=== PATIENT | male | born 1985 | race Caucasian/White ===

== ENCOUNTER 2018-11-13 18:26 | Emergency (ER) | payer SELFPAY ==
[2018-11-13 19:23] LABS: Bilirubin Negative (Negative); Blood, Urine Large (Negative); Clarity TURBID (Clear); Glucose, Urine (Dipstick) Negative (Negative); Leukocyte Large (Negative); Nitrite Positive (Negative); Protein, Urine (Dipstick) 100 mg/dL (Neg-Trace); Specific Gravity, Urine 1.014 (1.002-1.036)
[2018-11-13 19:26] LABS: Bacteria/HPF 4+ HPF (None Seen); Squamous Epithelial 0-3 HPF (0-3); Yeast-AUWi Flag 18.4 (0-25.0)
[2018-11-13 19:29] LABS: Pathc Cast-AUWi Flag 7.48 (0-2.49)
[2018-11-13 19:38] LABS: Hyaline Casts/LPF NONE SEEN LPF (0-3 Hyaline); Manual Microscopic Reviewed? No Path Casts Seen
[2018-11-13 20:03] LABS: #Lymphocytes 0.8 thou/uL (1.20-3.40); #Monocytes 0.9 thou/uL (0.11-0.59); %Basophils 0.1 % (0.0-1.0); %Eosinophils 0.1 % (0.0-10.0); %Lymphocytes 4.9 % (21.0-51.0); %Monocytes 5.1 % (0.0-10.0); %Neutrophils 89.7 % (42.0-75.0); Hemoglobin 15.5 g/dL (14.0-18.0); Mean Corpuscular HGB CONC 32.8 g/dL (32.0-36.0); Mean Corpuscular Hemoglobin 31.7 pg (27.0-31.0); Mean Corpuscular Volume 96.6 fL (78.0-98.0); Mean Platelet Volume 9.1 fL (7.4-10.4); Platelet Count 161 thou/uL (130-400); Red Blood Cell (RBC) Count 4.89 mill/uL (4.70-6.10); White Blood Cell (WBC) Count 16.7 thou/uL (4.8-10.8)
[2018-11-13 20:28] LABS: ALT (SGPT) 333 U/L (8-55); AST (SGOT) 172 U/L (5-34); Albumin 3.7 g/dL (3.5-5.0); Alkaline Phosphatase 252 U/L (40-150); Anion Gap 14 mmol/L (10-20); BUN (Urea Nitrogen) 12 mg/dL (8.9-20.6); Bilirubin, Total 0.9 mg/dL (0.2-1.2); Calc. Creatinine Clearance 0 mL/min (70-130); Calcium 9.5 mg/dL (7.8-10.44); Carbon Dioxide 29 mmol/L (22-29); Chloride 94 mmol/L (98-107); Estimated GFR-MDRD 81; Globulin 3.6 g/dL (2.4-3.5); Glucose 157 mg/dL (70-105); Potassium 4.2 mmol/L (3.5-5.1); Protein, Total 7.3 g/dL (6.0-8.3); Sodium 133 mmol/L (136-145)
--- NOTE | 2018-11-13 20:42 | CT ---
CT ABDOMEN AND PELVIS NONCONTRAST: History: Flank pain. Dysuria. FINDINGS: Each renal collecting system, ureter and urinary bladder are decompressed. There is subtle stranding within the retroperitoneal fat around each kidney. Lack of contrast limits evaluation for other abnormalities. Hyperdense material is present within the colon. IMPRESSION: 1. No CT evidence of urinary tract obstruction or calcification. 2. Subtle stranding within the retroperitoneal fat around each kidney reflects inflammation. Clinical correlation regarding other signs of symptoms of bilateral upper urinary tract infection is required . POS: [facility]
[2018-11-13] MEDS ORDERED: cefTRIAXone\\ROCEPHIN 1 GM VIAL ONE (20:45)
[2018-11-13] MEDS ORDERED: Morphine 4 MG/ML VIAL ONE (21:37)
[2018-11-13] MEDS ORDERED: Acetaminophen 500 MG TAB ONE (21:38)
== END 2018-11-13 22:37 | disposition home or self-care (01) ==
LOC: ERS 18:26
DX: N12 Tubulo-interstitial nephritis, not specified as acute or chronic (principal); R74.8 Abnormal levels of other serum enzymes; F41.9 Anxiety disorder, unspecified; F17.210 Nicotine dependence, cigarettes, uncomplicated
CPT/HCPCS: 36415; 74176; 80053; 81003; 81015; 85025; 96365; 96375; J0696; J2270

== ENCOUNTER 2019-04-25 06:51 | Inpatient (IN) | payer OTHER, SELFPAY ==
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
[2019-04-25 07:46] LABS: #Basophils 0.1 thou/uL (0.0-0.2); #Eosinphils 0.1 thou/uL (0.0-0.7); #Lymphocytes 2.3 thou/uL (1.20-3.40); #Monocytes 0.8 thou/uL (0.11-0.59); #Neutrophils 13.9 thou/uL (1.40-6.50); %Basophils 0.3 % (0.0-1.0); %Eosinophils 0.7 % (0.0-10.0); %Lymphocytes 13.4 % (21.0-51.0); %Monocytes 4.4 % (0.0-10.0); %Neutrophils 81.3 % (42.0-75.0); Hemoglobin 15.3 g/dL (14.0-18.0); Mean Corpuscular Hemoglobin 32.3 pg (27.0-31.0); Mean Corpuscular Volume 94.9 fL (78.0-98.0); Mean Platelet Volume 8.8 fL (7.4-10.4); Platelet Count 190 thou/uL (130-400); Red Blood Cell (RBC) Count 4.73 mill/uL (4.70-6.10); White Blood Cell (WBC) Count 17.1 thou/uL (4.8-10.8)
[2019-04-25] MEDS ORDERED: Ondansetron PF 4 MG/2 ML Vial ONE ×3 (07:53→11:06)
[2019-04-25] MEDS ORDERED: Lorazepam 2 MG/ML VIAL ONE (07:53)
--- NOTE | 2019-04-25 07:58 | CT ---
CT CERVICAL SPINE WITHOUT IV CONTRAST: FINDINGS: Very minute disk osteophytosis. No evidence for acute fracture or dislocation. IMPRESSION: No acute cervical spine fracture or dislocation. Findings were discussed with Dr. Patel in the emergency room at 7:44 a.m. ALYSSIA ADORNO POS: [facility]
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
[2019-04-25 08:10] LABS: Acetaminophen Less than 6.0 mcg/mL (10.0-30.0); Alcohol Less than 10 mg/dL (Less than 10); Salicylate Less than 8.0 mg/dL (15.0-30.0)
[2019-04-25 08:11] LABS: ALT (SGPT) 52 U/L (8-55); AST (SGOT) 78 U/L (5-34); Albumin 4.1 g/dL (3.5-5.0); Alkaline Phosphatase 67 U/L (40-150); Anion Gap 10 mmol/L (10-20); BUN (Urea Nitrogen) 21 mg/dL (8.9-20.6); Calc. Creatinine Clearance 0 mL/min (70-130); Calcium 8.9 mg/dL (7.8-10.44); Carbon Dioxide 29 mmol/L (22-29); Chloride 100 mmol/L (98-107); Estimated GFR-MDRD 81; Globulin 1.9 g/dL (2.4-3.5); Glucose 127 mg/dL (70-105); Lipase 13 U/L (8-78); Potassium 3.3 mmol/L (3.5-5.1); Sodium 136 mmol/L (136-145)
[2019-04-25] MEDS ORDERED: Morphine 4 MG/ML VIAL ONE (08:15)
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
[2019-04-25] MEDS ORDERED: Bupivacaine HCl 0.5%/Epinephrine 1:200,000/PF 30 ml Vial ONE ×2 (09:43→16:53)
[2019-04-25] MEDS ORDERED: Thrombin 5000 UNITS/5 ML VIAL ONE (09:43)
[2019-04-25] MEDS ORDERED: Fentanyl 250 MCG/5 ML VIAL ONE (09:56)
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
[2019-04-25] MEDS ORDERED: Glycopyrrolate 0.2 MG/ML 5 ML SYRINGE ONE (11:06)
[2019-04-25] MEDS ORDERED: Succinylcholine Chloride 20 MG/ML 10 ml SYRINGE FS ONE (11:06)
[2019-04-25] MEDS ORDERED: Ketorolac Tromethamine 30 MG/ML VIAL ONE (11:06)
[2019-04-25] MEDS ORDERED: Dexamethasone 20 MG/5 ML VIAL ONE (11:06)
[2019-04-25] MEDS ORDERED: Rocuronium Bromide 10 MG/ML (10ML VIAL) ONE (11:06)
[2019-04-25] MEDS ORDERED: PROPOFOL 200 MG/20 ML VIAL ONE (11:06)
[2019-04-25] MEDS ORDERED: PHENYLEPHRINE-NS 100 MCG/ML 10 ML SYRINGE ONE (11:06)
[2019-04-25] MEDS ORDERED: CEFAZOLIN 1 GM VIAL ONE (15:08)
[2019-04-25] MEDS ORDERED: Fentanyl 100 MCG/2 ML VIAL ONE (16:27)
[2019-04-25] MEDS ORDERED: ISOVUE-370 76%-LOCM 1 ML ONE (16:37)
[2019-04-25] MEDS ORDERED: PACU-Morphine 4MG/ML VIAL SLOW IVP PRN (17:30)
[2019-04-25] MEDS ORDERED: Promethazine HCl 25 MG/ML VIAL SLOW IVP PRN (17:30)
[2019-04-25] MEDS ORDERED: Promethazine HCl 25 MG/ML VIAL IM PRN (17:30)
[2019-04-25] MEDS ORDERED: HYDROmorphone 2 MG/ML VIAL SLOW IVP PRN (17:30)
[2019-04-25] MEDS ORDERED: Ondansetron HCl/PF 4 MG/2 ML Vial IVP PRN (17:30)
[2019-04-25] MEDS ORDERED: Ondansetron ODT 4 MG TAB PO PRN (17:50)
[2019-04-25] MEDS ORDERED: Ondansetron PF 4 MG/2 ML Vial IVP PRN (17:50)
[2019-04-25] MEDS ORDERED: Morphine 4 MG/ML VIAL SLOW IVP PRN (17:50)
[2019-04-25] MEDS ORDERED: Dextrose 50% Abboject 50 ML SYRINGE SLOW IVP PRN (17:50)
[2019-04-25] MEDS ORDERED: Dextrose 5% in Water 1,000 ML IV PRN (17:50)
[2019-04-25 21:08] LABS: #Lymphocytes 0.5 thou/uL (1.20-3.40); #Monocytes 0.3 thou/uL (0.11-0.59); #Neutrophils 9.6 thou/uL (1.40-6.50); %Basophils 0.1 % (0.0-1.0); %Eosinophils 0.3 % (0.0-10.0); %Lymphocytes 4.5 % (21.0-51.0); %Monocytes 3.2 % (0.0-10.0); Hemoglobin 12.5 g/dL (14.0-18.0); Mean Corpuscular HGB CONC 32.6 g/dL (32.0-36.0); Mean Corpuscular Hemoglobin 31.7 pg (27.0-31.0); Mean Platelet Volume 8.8 fL (7.4-10.4); Platelet Count 155 thou/uL (130-400); RBC Distribution Width 11.2 % (11.5-14.5); Red Blood Cell (RBC) Count 3.96 mill/uL (4.70-6.10); White Blood Cell (WBC) Count 10.4 thou/uL (4.8-10.8)
[2019-04-25] MEDS: Sodium Chloride 0.9% 1,000 ML IV SCH (21:12)
[2019-04-25] MEDS: Acetaminophen 1,000 MG in Premix Bag 1 BAG IVPB SCH (21:13)
[2019-04-25] MEDS: Famotidine 20 MG TAB PO SCH (21:14)
[2019-04-25] MEDS: Morphine 2 MG/ML SYRINGE SLOW IVP PRN (21:14)
[2019-04-25] MEDS: Senokot S 8.6-50 MG TAB PO SCH (21:14)
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
[2019-04-25] MEDS ORDERED: traMADol HCl 50 MG TAB PO PRN (21:19)
[2019-04-25 21:29] LABS: Anion Gap 9 mmol/L (10-20); BUN (Urea Nitrogen) 15 mg/dL (8.9-20.6); Calc. Creatinine Clearance 0 mL/min (70-130); Calcium 8.1 mg/dL (7.8-10.44); Carbon Dioxide 26 mmol/L (22-29); Chloride 107 mmol/L (98-107); Estimated GFR-MDRD Greater than 90; Glucose 112 mg/dL (70-105); Magnesium 1.8 mg/dL (1.6-2.6); Phosphorus 2.8 mg/dL (2.3-4.7); Potassium 4.1 mmol/L (3.5-5.1); Sodium 138 mmol/L (136-145)
[2019-04-25] MEDS ORDERED: Pantoprazole 40 MG VIAL IVP SCH (21:30)
[2019-04-25] MEDS: traMADol HCl 50 MG TAB PO SCH (22:40)
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
[2019-04-25 22:58] VITALS: BMI 20.4
[2019-04-25] MEDS ORDERED: CEFAZOLIN 1 GM VIAL SLOW IVP SCH (23:00)
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
[2019-04-26] MEDS: Acetaminophen 1,000 MG in Premix Bag 1 BAG IVPB SCH ×2 (02:42→09:26)
[2019-04-26] MEDS: traMADol HCl 50 MG TAB PO SCH ×4 (04:28→20:19)
[2019-04-26] MEDS: Sodium Chloride 0.9% 1,000 ML IV SCH ×4 (04:28→23:36)
[2019-04-26] MEDS: Morphine 2 MG/ML SYRINGE SLOW IVP PRN (05:04)
[2019-04-26] MEDS: CEFAZOLIN 2 GM in Premix Bag 1 BAG IVPB SCH ×3 (06:21→23:35)
[2019-04-26 07:39] LABS: #Lymphocytes 1.2 thou/uL (1.20-3.40); #Monocytes 0.8 thou/uL (0.11-0.59); #Neutrophils 7.8 thou/uL (1.40-6.50); %Basophils 0.2 % (0.0-1.0); %Eosinophils 0.3 % (0.0-10.0); %Lymphocytes 12.6 % (21.0-51.0); %Monocytes 7.8 % (0.0-10.0); %Neutrophils 79.1 % (42.0-75.0); Hemoglobin 10.8 g/dL (14.0-18.0); Mean Corpuscular HGB CONC 33.6 g/dL (32.0-36.0); Mean Corpuscular Hemoglobin 32.3 pg (27.0-31.0); Mean Corpuscular Volume 96.1 fL (78.0-98.0); Platelet Count 137 thou/uL (130-400); RBC Distribution Width 10.9 % (11.5-14.5); Red Blood Cell (RBC) Count 3.34 mill/uL (4.70-6.10); White Blood Cell (WBC) Count 9.9 thou/uL (4.8-10.8)
[2019-04-26 08:00] LABS: Anion Gap 9 mmol/L (10-20); BUN (Urea Nitrogen) 11 mg/dL (8.9-20.6); Calc. Creatinine Clearance 165 mL/min (70-130); Calcium 7.7 mg/dL (7.8-10.44); Carbon Dioxide 24 mmol/L (22-29); Chloride 103 mmol/L (98-107); Estimated GFR-MDRD Greater than 90; Glucose 121 mg/dL (70-105); Potassium 4.1 mmol/L (3.5-5.1); Sodium 132 mmol/L (136-145)
[2019-04-26] MEDS ORDERED: traMADol HCl 50 MG TAB PO PRN (08:15)
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
[2019-04-26] MEDS: Cyclobenzaprine 10 MG TAB PO SCH ×2 (09:29→20:20)
[2019-04-26] MEDS: Famotidine 20 MG TAB PO SCH ×2 (09:29→20:18)
[2019-04-26] MEDS: Gabapentin 300 MG CAP PO SCH ×3 (09:29→20:20)
[2019-04-26] MEDS: Senokot S 8.6-50 MG TAB PO SCH ×2 (09:29→20:20)
[2019-04-26] MEDS: Polyethylene Glycol 3350 17 GM Packet PO SCH (09:30)
[2019-04-26] MEDS: Acetaminophen 500 MG TAB PO SCH ×3 (11:37→23:35)
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
[2019-04-26] MEDS ORDERED: Acetaminophen 500 MG TAB PO SCH (21:30)
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
[2019-04-27] MEDS: traMADol HCl 50 MG TAB PO SCH ×4 (04:22→23:05)
[2019-04-27] MEDS: Acetaminophen 500 MG TAB PO SCH ×4 (05:42→23:05)
[2019-04-27] MEDS: CEFAZOLIN 2 GM in Premix Bag 1 BAG IVPB SCH ×3 (05:43→23:03)
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
[2019-04-27] MEDS: Famotidine 20 MG TAB PO SCH ×2 (09:35→21:03)
[2019-04-27] MEDS: Cyclobenzaprine 10 MG TAB PO SCH ×3 (09:35→21:02)
[2019-04-27] MEDS: Enoxaparin Sodium 40 MG/0.4 ML SYRINGE SC SCH (09:35)
[2019-04-27] MEDS: Senokot S 8.6-50 MG TAB PO SCH ×2 (09:36→21:03)
[2019-04-27] MEDS: Polyethylene Glycol 3350 17 GM Packet PO SCH (09:36)
[2019-04-27] MEDS: Gabapentin 300 MG CAP PO SCH ×3 (09:36→21:03)
[2019-04-27] MEDS: Sodium Chloride 0.9% 1,000 ML IV SCH (14:57)
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
[2019-04-28] MEDS: traMADol HCl 50 MG TAB PO PRN ×3 (03:06→17:34)
[2019-04-28] MEDS: Acetaminophen 500 MG TAB PO SCH ×3 (05:53→17:32)
[2019-04-28] MEDS: traMADol HCl 50 MG TAB PO SCH ×3 (05:53→17:33)
--- NOTE | 2019-04-28 07:57 | PRG ---
DATE OF SERVICE: 04/28/2019 I saw Mr. Pryor in his hospital room this morning. He has been moved out of the [facility] to general floor care. The brace is off as he is resting comfortably in bed. Both drains have been removed. I do not find any new deficits on his neurological examination. He can wiggle his toes and he has sensation in his legs. His bladder is working. We will continue to follow Mr. Pryor while he is in the hospital. When his head of bed is about 45 degrees, the brace should be on. Job ID: [id number]
[2019-04-28] MEDS: Sodium Chloride 0.9% 1,000 ML IV SCH (10:07)
[2019-04-28] MEDS: Cyclobenzaprine 10 MG TAB PO SCH ×3 (10:08→22:23)
[2019-04-28] MEDS: Gabapentin 300 MG CAP PO SCH ×3 (10:08→22:23)
[2019-04-28] MEDS: Famotidine 20 MG TAB PO SCH ×2 (10:08→22:23)
[2019-04-28] MEDS: Enoxaparin Sodium 40 MG/0.4 ML SYRINGE SC SCH (10:08)
[2019-04-28] MEDS: Senokot S 8.6-50 MG TAB PO SCH ×2 (10:08→22:23)
[2019-04-28] MEDS: Polyethylene Glycol 3350 17 GM Packet PO SCH (10:10)
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
[2019-04-29] MEDS: traMADol HCl 50 MG TAB PO SCH ×4 (00:18→17:49)
[2019-04-29] MEDS: traMADol HCl 50 MG TAB PO PRN ×4 (00:18→17:49)
[2019-04-29] MEDS: Acetaminophen 500 MG TAB PO SCH ×4 (00:18→17:50)
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
--- NOTE | 2019-04-29 09:11 | PRG ---
DATE OF SERVICE: 04/29/2019 I saw Mr. Pryor on rounds this morning. He is resting comfortably being in bed. He has not been told by Trauma Surgery or Orthopedics, to his recollection, whether he can be weightbearing on his lower extremities. He is able to sit up yesterday in his brace, which he described as not very comfortable, but tolerable. Overnight, the vitals have been stable, and his neurological examination is likewise unchanged. Mr. Pryor's disposition will be inpatient rehabilitation or home depending on his level of ambulation and independence. Job ID: [id number]
[2019-04-29] MEDS: Cyclobenzaprine 10 MG TAB PO SCH ×3 (09:34→20:43)
[2019-04-29] MEDS: Famotidine 20 MG TAB PO SCH ×2 (09:34→20:43)
[2019-04-29] MEDS: Gabapentin 300 MG CAP PO SCH ×2 (09:34→20:43)
[2019-04-29] MEDS: Polyethylene Glycol 3350 17 GM Packet PO SCH (09:35)
[2019-04-29] MEDS: Senokot S 8.6-50 MG TAB PO SCH ×2 (09:35→20:43)
[2019-04-29] MEDS: Enoxaparin Sodium 40 MG/0.4 ML SYRINGE SC SCH (09:35)
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
[2019-04-29] MEDS ORDERED: Acetaminophen/Codeine 30-300mg Tablet PO PRN (22:31)
[2019-04-29] MEDS: Acetaminophen/Codeine 30-300mg Tablet PO PRN (22:51)
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
[2019-04-30] MEDS: Acetaminophen 325 MG TAB PO SCH ×3 (05:37→21:17)
[2019-04-30] MEDS: Acetaminophen/Codeine 30-300mg Tablet PO PRN ×3 (05:38→21:14)
[2019-04-30] MEDS: Enoxaparin Sodium 40 MG/0.4 ML SYRINGE SC SCH (08:46)
[2019-04-30] MEDS: Cyclobenzaprine 10 MG TAB PO SCH (08:46)
[2019-04-30] MEDS: Famotidine 20 MG TAB PO SCH ×2 (08:47→21:17)
[2019-04-30] MEDS: Gabapentin 300 MG CAP PO SCH ×2 (08:47→21:17)
[2019-04-30] MEDS: Polyethylene Glycol 3350 17 GM Packet PO SCH (08:47)
[2019-04-30] MEDS: Senokot S 8.6-50 MG TAB PO SCH ×2 (08:47→21:17)
[2019-04-30] MEDS ORDERED: Morphine 2 MG/ML SYRINGE SLOW IVP SCH (12:00)
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
[2019-04-30] MEDS: Cyclobenzaprine 10 MG TAB PO PRN ×2 (14:39→22:58)
[2019-04-30] MEDS ORDERED: Morphine 2 MG/ML SYRINGE SLOW IVP PRN (15:40)
[2019-05-01] MEDS: Acetaminophen/Codeine 30-300mg Tablet PO PRN (02:14)
[2019-05-01] MEDS: Acetaminophen 325 MG TAB PO SCH (07:28)
[2019-05-01] MEDS ORDERED: Bisacodyl 10 MG SUPP PR SCH (07:45)
[2019-05-01] MEDS ORDERED: Gabapentin 300 MG CAP PO SCH ×2 (09:00)
[2019-05-01] MEDS ORDERED: Ibuprofen 800 MG TAB PO SCH (09:00)
[2019-05-01] MEDS: Senokot S 8.6-50 MG TAB PO SCH (09:15)
[2019-05-01] MEDS: Famotidine 20 MG TAB PO SCH (09:15)
[2019-05-01] MEDS: Enoxaparin Sodium 40 MG/0.4 ML SYRINGE SC SCH (09:16)
[2019-05-01] MEDS: Polyethylene Glycol 3350 17 GM Packet PO SCH (09:16)
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
[2019-05-01] MEDS ORDERED: Acetaminophen 500 MG TAB PO SCH (12:00)
[2019-05-01] MEDS ORDERED: traMADol HCl 50 MG TAB PO SCH (12:00)
[2019-05-01 15:52] VITALS: BP 117/72; TEMP 97.6
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
== END 2019-05-01 17:55 | disposition home or self-care (01) | DRG 460 ==
LOC: ERS 06:51 → ERHOLD 07:47 → IMCU/EMU 19:47 → SJJU 04-27 18:39
PROVIDERS: ADMIT Surgery; ATTEND Surgery
PROC: 0RG6071 Fusion of Thoracic Vertebral Joint with Autologous Tissue Substitute, Posterior Approach, Posterior Column, Open Approach (ICD-10-PCS; principal; 2019-04-25)
PROC: 0RGA071 Fusion of Thoracolumbar Vertebral Joint with Autologous Tissue Substitute, Posterior Approach, Posterior Column, Open Approach (ICD-10-PCS; 2019-04-25)
PROC: 0SG0071 Fusion of Lumbar Vertebral Joint with Autologous Tissue Substitute, Posterior Approach, Posterior Column, Open Approach (ICD-10-PCS; 2019-04-25)
PROC: 01NB0ZZ Release Lumbar Nerve, Open Approach (ICD-10-PCS; 2019-04-25)
PROC: 0QSP04Z Reposition Left Metatarsal with Internal Fixation Device, Open Approach (ICD-10-PCS; 2019-04-25)
PROC: 0QSG04Z Reposition Right Tibia with Internal Fixation Device, Open Approach (ICD-10-PCS; 2019-04-25)
DX: S32.012A Unstable burst fracture of first lumbar vertebra, initial encounter for closed fracture (principal); S82.51XA Displaced fracture of medial malleolus of right tibia, initial encounter for closed fracture; S92.312A Displaced fracture of first metatarsal bone, left foot, initial encounter for closed fracture; S92.342A Displaced fracture of fourth metatarsal bone, left foot, initial encounter for closed fracture; S92.352A Displaced fracture of fifth metatarsal bone, left foot, initial encounter for closed fracture; S93.325A Dislocation of tarsometatarsal joint of left foot, initial encounter; G89.11 Acute pain due to trauma; F41.9 Anxiety disorder, unspecified; F17.210 Nicotine dependence, cigarettes, uncomplicated; V89.0XXA Person injured in unspecified motor-vehicle accident, nontraffic, initial encounter; R40.2412 Glasgow coma scale score 13-15, at arrival to emergency department; S06.0X0A Concussion without loss of consciousness, initial encounter
CPT/HCPCS: 36415; 70450; 71260; 72126; 74177; 76000; 80048; 80053; 80307; 83690; 83735; 84100; 85025; 96361; 96374; 96375; C1713; C1768; C1769; C9113; G0390; J0131; J0670; J0690; J1100; J1650; J1885; J2060; J2270; J2405; J2704; J3010; L0639; Q9966

== ENCOUNTER 2019-08-24 13:24 | Emergency (ER) | payer OTHER, SELFPAY ==
--- NOTE | 2019-08-24 15:02 | CT ---
CT Lumbar Spine WO Con History: Pain after surgery Comparison: CT examination April 2019 Findings: Lung bases are clear. Aortic contour is normal. No retroperitoneal periaortic adenopathy. Posterior spinal fusion hardware with interconnecting rods from T11-L3 traversing the L1 burst fractu re. Laminectomy changes at L1 decompressing the thecal sac. Partial resorption of the inferior endplate of the complete burst fracture. A portion of the left superior endplate of L1 narrows the le ft neural foramina. Retropulsion causes mild right-sided neural foraminal narrowing. No perihardware lucency. No hardware complication. New from the comparison examination is a transversely oriented fracture through S2 anterior cortex ex tending from the right the left SI joint traversing both neural foramina. Impression: 1. Satisfactory postoperative appearance thoracolumbar spine traversing the complete burst fracture o f L1. No hardware complication. 2. New from the comparison examination transversely oriented fracture through anterior cortex of S2 e xtending to both SI joints traversing both S2 neural foramina. Fracture does extend to the right ilium and is incompletely imaged. Code: CR
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
[2019-08-24 15:56] LABS: #Basophils 0.1 thou/uL (0.0-0.2); #Eosinphils 0.1 thou/uL (0.0-0.7); #Lymphocytes 2.5 thou/uL (1.20-3.40); #Monocytes 0.9 thou/uL (0.11-0.59); #Neutrophils 5.2 thou/uL (1.40-6.50); %Basophils 0.7 % (0.0-1.0); %Eosinophils 1.5 % (0.0-10.0); %Lymphocytes 28.6 % (21.0-51.0); %Monocytes 10.1 % (0.0-10.0); %Neutrophils 59.1 % (42.0-75.0); Hemoglobin 14.7 g/dL (14.0-18.0); Mean Corpuscular HGB CONC 33.9 g/dL (32.0-36.0); Mean Corpuscular Hemoglobin 30.4 pg (27.0-31.0); Mean Corpuscular Volume 89.6 fL (78.0-98.0); Mean Platelet Volume 8.8 fL (7.4-10.4); Platelet Count 194 thou/uL (130-400); RBC Distribution Width 13.7 % (11.5-14.5); Red Blood Cell (RBC) Count 4.82 mill/uL (4.70-6.10); White Blood Cell (WBC) Count 8.8 thou/uL (4.8-10.8)
[2019-08-24 16:15] LABS: ALT (SGPT) 9 U/L (8-55); AST (SGOT) 13 U/L (5-34); Albumin 4.7 g/dL (3.5-5.0); Alkaline Phosphatase 86 U/L (40-110); Anion Gap 13 mmol/L (10-20); BUN (Urea Nitrogen) 16 mg/dL (8.9-20.6); Bilirubin, Total 3.8 mg/dL (0.2-1.2); Calc. Creatinine Clearance 0 mL/min (70-130); Calcium 9.6 mg/dL (7.8-10.44); Carbon Dioxide 25 mmol/L (22-29); Chloride 105 mmol/L (98-107); Estimated GFR-MDRD Greater than 90; Globulin 2.6 g/dL (2.4-3.5); Glucose 93 mg/dL (70-105); Potassium 3.4 mmol/L (3.5-5.1); Protein, Total 7.3 g/dL (6.0-8.3); Sodium 140 mmol/L (136-145)
[2019-08-24] MEDS ORDERED: Ketorolac Tromethamine 60 MG/2 ML VIAL ONE (17:27)
== END 2019-08-24 17:47 | disposition home or self-care (01) ==
LOC: ERS 13:24
DX: M54.5 Low back pain (principal); F41.9 Anxiety disorder, unspecified; F17.210 Nicotine dependence, cigarettes, uncomplicated
CPT/HCPCS: 36415; 72131; 72192; 80053; 85025; 96372; J1885

== ENCOUNTER 2021-08-05 | Emergency (ER) | payer SELFPAY ==
[2021-08-05] MEDS ORDERED: Ketorolac Tromethamine 30 MG/ML VIAL ONE (00:57)
== END 2021-08-05 03:02 | disposition home or self-care (01) ==
LOC: ERS
DX: M62.830 Muscle spasm of back (principal); F17.290 Nicotine dependence, other tobacco product, uncomplicated
CPT/HCPCS: 96372; 99283; J1885

== ENCOUNTER 2021-08-17 22:19 | Emergency (ER) | payer SELFPAY ==
[2021-08-18 00:12] LABS: Bilirubin Negative (Negative); Blood, Urine Negative (Negative); Clarity Clear (Clear); Glucose, Urine (Dipstick) Normal (Negative); Ketone, Urine Negative (Negative); Leukocyte Negative Leu/uL (Negative); Nitrite Negative (Negative); Protein, Urine (Dipstick) Negative (Neg-Trace); Specific Gravity, Urine 1.028 (1.002-1.036); Urobilinogen Normal mg/dL (Less than 2); pH, Urine 6.5 (5.0-9.0)
== END 2021-08-18 00:37 | disposition home or self-care (01) ==
LOC: ERS 22:19
DX: M54.50 Low back pain, unspecified (principal); G89.29 Other chronic pain; F17.210 Nicotine dependence, cigarettes, uncomplicated
CPT/HCPCS: 81003; 99281

== ENCOUNTER 2021-09-15 01:22 | Emergency (ER) | payer SELFPAY ==
[2021-09-15 11:56] LABS: SARS-CoV-2 PCR by NAA Not Detected (NotDetected)
== END 2021-09-15 02:06 | disposition home or self-care (01) ==
LOC: ERS 01:22
DX: R05.9 Cough, unspecified (principal); F17.210 Nicotine dependence, cigarettes, uncomplicated; Z20.822 Contact with and (suspected) exposure to COVID-19
CPT/HCPCS: 99283; U0003; U0005